=== PATIENT | male | born 1975 | race Caucasian/White ===

== ENCOUNTER 2017-09-03 20:50 | Emergency (ER) | payer MEDICAID ==
[2017-09-03 20:50] VITALS: BMI 21.9
[2017-09-03 21:30] VITALS: BP 136/83; PULSE 71; RESP 16; TEMP 98.1; O2SAT 97
[2017-09-03] MEDS ORDERED: Albuterol 0.083% Inhal Sol (2.5 mg/3 mL) UD ONE (22:04)
[2017-09-03] MEDS: Albuterol 0.083% Inhal Sol (2.5 mg/3 mL) UD INH SCH ×2 (22:05→22:24)
--- NOTE | 2017-09-03 23:07 | C.PDOC ---
History Of Present Illness 42 y/o male presents to ED for complaints of cough associated with chest congestion that began 2 days ago after inhaling fumes from mixing detergents while cleaning the bathroom. Patient states symptoms improved after using his sister's nebulizer machine but today with persistent cough and SOB. Denies fever , PMHx of asthma, or any other physical complaints. Time Seen by Provider: 09/03/17 21:43 Chief Complaint (Nursing): Cough, Cold, Congestion History Per: Patient History/Exam Limitations: no limitations Onset/Duration Of Symptoms: Days (2) Current Symptoms Are (Timing): Still Present Location Of Pain: None Sick Contacts (Context): None Associated Symptoms: Cough. denies: Fever, Chills, Vomiting, Diarrhea Ear Symptoms: Bilateral: None Recent travel outside of the [place]: No Past Medical History Reviewed: Historical Data, Nursing Documentation, Vital Signs Vital Signs: Last Vital Signs Temp 98.1 F 09/03/17 21:27 Pulse 71 09/03/17 21:27 Resp 16 09/03/17 21:27 BP 136/83 09/03/17 21:27 Pulse Ox 97 09/04/17 05:05 - Medical History PMH: Depression, Schizophrenia Surgical History: Tonsillectomy - [facility] Procedures ENDO RECTUM POLYPECTOMY (02/13/13) ENDOSC POLYPECTOMY OF LG INTEST (02/13/13) Family History: States: Unknown Family Hx - Social History Hx Tobacco Use: Yes (1.5 ppd) Hx Alcohol Use: No Hx Substance Use: No - Immunization History Hx Tetanus Toxoid Vaccination: No Hx Influenza Vaccination: No Hx Pneumococcal Vaccination: No Review Of Systems Constitutional: Negative for: Fever, Chills Cardiovascular: Positive for: Other (Chest congestion ). Negative for: Chest Pain Respiratory: Positive for: Cough, Shortness of Breath Gastrointestinal: Negative for: Nausea, Vomiting, Abdominal Pain, Diarrhea Skin: Negative for: Rash Neurological: Negative for: Weakness, Numbness Physical Exam - Physical Exam Appears: Non-toxic, No Acute Distress Skin: Normal Color, Warm, Dry, No Rash Head: Atraumatic, Normacephalic Eye(s): bilateral: Normal Inspection, PERRL, EOMI Oral Mucosa: Moist Throat: Normal, No Erythema, No Exudate, No Drooling Neck: Supple Chest: Symmetrical, No Tenderness Cardiovascular: Rhythm Regular, No Murmur Respiratory: Decreased Breath Sounds, Wheezing (Diffused expiratory ) Gastrointestinal/Abdominal: Soft, No Tenderness Extremity: Normal ROM, No Deformity Extremity: Bilateral: Atraumatic, Normal Color And Temperature, Normal ROM Neurological/Psych: Oriented x3 (Awake and alert), Normal Speech (Speaking in complete sentences), Other (No focal deficits ) Gait: Steady ED Course And Treatment O2 Sat by Pulse Oximetry: 97 (RA) Pulse Ox Interpretation: Normal Progress Note: Administered prednisone and albuterol nebulizer treatment. Re- evaluation: - Patient is in no distress, symptoms improved, no wheezing. - Patient is stable for discharge/ Return precautions explained and understood by Pt Disposition Counseled Patient/Family Regarding: Diagnosis, Need For Followup - Disposition Disposition: HOME/ ROUTINE Disposition Time: 23:04 Condition: STABLE Additional Instructions: Use medications as prescribed Use humidifier at home / or warm mist Follow up with PMD Consider smoking cessation Return to ER if worse Prescriptions: Albuterol HFA [Ventolin HFA 90 mcg/actuation (8 g)] 2 puff IH [id number] #1 inhaler predniSONE [Prednisone] 40 mg PO DAILY #8 tab Instructions: Viral Upper Respiratory Infection, Adult (DC) Forms: [employer] (Guatemalan), Work Excuse - Clinical Impression Clinical Impression: Bronchospasm, acute - 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 - Scribe Statement The provider has reviewed the documentation as recorded by the Scribteetee Bond All medical record entries made by the Hectoribe were at my direction and personally dictated by me. I have reviewed the chart and agree that the record accurately reflects my personal performance of the history, physical exam, medical decision making, and the department course for this patient. I have also personally directed, reviewed, and agree with the discharge instructions and disposition.
== END 2017-09-03 23:13 | disposition home or self-care (01) ==
LOC: C.ER 20:50
DX: J98.01 Acute bronchospasm (principal); F20.9 Schizophrenia, unspecified; F17.210 Nicotine dependence, cigarettes, uncomplicated